=== PATIENT | male | born 1975 | race Caucasian/White ===

== ENCOUNTER 2016-11-04 13:13 | Outpatient (CLI) | payer MEDICAID | END 2016-11-04 13:14 | disposition home or self-care (01) | DX: G47.30 Sleep apnea, unspecified (principal); G47.8 Other sleep disorders; G47.10 Hypersomnia, unspecified; R06.83 Snoring ==

== ENCOUNTER 2016-12-15 09:48 | Day surgery (SDC) | payer MEDICAID ==
[2016-12-15] MEDS ORDERED: LACTATED RINGERS 1,000 ML IV ONE (10:15)
[2016-12-15] MEDS ORDERED: MIDAZOLAM 2 MG/2 ML VIAL IVP ONE (11:09)
[2016-12-15] MEDS ORDERED: fentaNYL 250 MCG/5 ML VIAL IVP ONE (11:09)
== END 2016-12-15 09:49 | disposition home or self-care (01) ==
PROC: 0DJD8ZZ Inspection of Lower Intestinal Tract, Via Natural or Artificial Opening Endoscopic (ICD-10-PCS; principal; 2016-12-15 11:00)
DX: R10.32 Left lower quadrant pain (principal); Z80.0 Family history of malignant neoplasm of digestive organs; K64.8 Other hemorrhoids; K57.30 Diverticulosis of large intestine without perforation or abscess without bleeding; G47.30 Sleep apnea, unspecified; F41.0 Panic disorder [episodic paroxysmal anxiety]
CPT/HCPCS: 45378; J3010; J7120

== ENCOUNTER 2017-01-12 14:22 | Outpatient (CLI) | payer MEDICAID | END 2017-01-12 14:23 | disposition home or self-care (01) | DX: G47.33 Obstructive sleep apnea (adult) (pediatric) (principal) ==

== ENCOUNTER 2017-06-01 10:46 | Outpatient (CLI) | payer MEDICAID | END 2017-06-01 10:47 | disposition home or self-care (01) | LOC: SC 10:46 | PROVIDERS: ATTEND Nurse Practitioner Family | DX: G47.33 Obstructive sleep apnea (adult) (pediatric) (principal) | CPT/HCPCS: 99212; 99214 ==

== ENCOUNTER 2023-11-16 17:04 | Emergency (ER) | payer MEDICAID ==
[2023-11-16 17:29] LABS: BASOPHILS # (AUTO) 0.1 10^3/uL (0.0-0.1); BASOPHILS % (AUTO) 0.5 %; EOSINOPHILS # (AUTO) 0.2 10^3/uL (0.0-0.7); EOSINOPHILS % (AUTO) 1.3 %; HCT - HEMATOCRIT 45.4 % (42.0-52.0); LYMPHOCYTES % (AUTO) 21.6 %; MEAN CORPUSCULAR HEMOGLOBIN 28.1 pg (27.0-31.0); MEAN CORPUSCULAR VOLUME 85.2 fL (80.0-94.0); MEAN PLATELET VOLUME 9.7 fL (7.4-11.4); MONOCYTES # (AUTO) 1.3 10^3/uL (0.0-1.0); MONOCYTES % (AUTO) 9.2 %; NEUTROPHILS # (AUTO) 9.2 10^3/uL (1.5-6.6); NEUTROPHILS % (AUTO) 67.1 %; PLT - PLATELET COUNT 199 10^3/uL (130-450); RED BLOOD COUNT 5.33 10^6/uL (4.70-6.10); RED CELL DISTRIBUTION WIDTH 12.7 % (12.0-15.0); WHITE BLOOD COUNT 13.7 x10^3/uL (4.8-10.8)
[2023-11-16 17:45] LABS: ALBUMIN/GLOBULIN RATIO 1.4 (1.0-2.2); BILIRUBIN,TOTAL 0.4 mg/dL (0.2-1.0); CALCIUM 9.5 mg/dL (8.5-10.3); POTASSIUM 4.2 mmol/L (3.5-4.5); TOTAL PROTEIN 6.8 g/dL (6.4-8.9)
[2023-11-16 17:54] LABS: BILIRUBIN,URINE NEGATIVE (NEGATIVE); GLUCOSE, URINE (UA) NEGATIVE (NEGATIVE); KETONES,URINE (UA) NEGATIVE (NEGATIVE); LEUKOCYTE ESTERASE, URINE NEGATIVE (NEGATIVE); NITRITE,URINE NEGATIVE (NEGATIVE); OCCULT BLOOD,URINE NEGATIVE (NEGATIVE); PROTEIN,URINE NEGATIVE (NEGATIVE); UROBILINOGEN,URINE 0.2 (NORMAL) E.U./dL (NORMAL)
[2023-11-16 17:55] LABS: CLARITY,URINE CLEAR (CLEAR)
[2023-11-16] MEDS ORDERED: KETOROLAC 30 MG/ML VIAL IVP STA (18:14)
[2023-11-16] MEDS ORDERED: iohexoL-300 100 ML VIAL ONE (18:19)
--- NOTE | 2023-11-16 18:23 | ED Physician Documentation ---
History of Present Illness - Stated complaint Stated Complaint: ABD PX - Chief complaint Chief Complaint: Abd Pain - History obtained from History obtained from: Patient - History of Present Illness Timing: Today Pain level max: 8 Pain level now: 8 - Additonal information Additional information: 42-year-old male presents to the emergency department with suprapubic and left lower quadrant abdominal pain that started today and has gradually worsened throughout the day. Has been constant. Has not had similar symptoms previously. No fevers. No chills. No diarrhea. No constipation. Worse with movement and palpation. Nothing makes it better. Does not take any medications at home. Review of Systems Constitutional: denies: Fever, Chills Respiratory: denies: Cough GI: denies: Vomiting, Diarrhea : denies: Dysuria, Frequency, Hesitancy Skin: denies: Rash Musculoskeletal: denies: Neck pain, Back pain Neurologic: denies: Headache PD PAST MEDICAL HISTORY - Past Medical History Past Medical History: Yes Cardiovascular: None Respiratory: Sleep apnea Endocrine/Autoimmune: None GI: Other : None HEENT: Chronic hearing loss Psych: None Musculoskeletal: None Derm: Other - Past Surgical History Past Surgical History: Yes HEENT: Myringotomy (tubes) - Present Medications Home Medications: Ambulatory Orders Medication Instructions Recorded Confirmed Amox/Clav 875/125 [Augmentin] 1 each PO Q8H #30 tablet 11/16/23 - Allergies Allergies/Adverse Reactions: Allergies Allergy/AdvReac Type Severity Reaction Status Date / Time No Known Drug Allergies Allergy Verified 11/16/23 17:08 - Social History Does the pt smoke?: No Smoking Status: Never smoker Does the pt drink ETOH?: No Does the pt have substance abuse?: No - Immunizations Immunizations are current?: Yes PD ED PE NORMAL - Vitals Vital signs reviewed: Yes - General General: Alert and oriented X 3, No acute distress - HEENT HEENT: PERRL - Neck Neck: Supple, no meningeal sign - Cardiac Cardiac: RRR, Strong equal pulses - Respiratory Respiratory: No respiratory distress, Clear bilaterally - Abdomen Abdomen: Soft, Non distended, Other (Tender to palpation left lower quadrant. No peritoneal signs. Otherwise benign abdominal exam.) - Back Back: No CVA TTP, No spinal TTP - Derm Derm: Warm and dry - Extremities Extremities: No edema, No calf tenderness / cord - Neuro Neuro: Alert and oriented X 3 - Psych Psych: Normal mood, Normal affect Results - Vitals Vitals: Vital Signs - 24 hr 11/16/23 11/16/23 17:08 19:45 Temperature 36.5 C Heart Rate 90 86 Respiratory 16 18 Rate Blood Pressure 150/90 H 159/95 H O2 Saturation 98 97 Oxygen O2 Source Room air - Labs Labs: Laboratory Tests 11/16/23 11/16/23 11/16/23 17:23 17:23 17:48 WBC 13.7 H RBC 5.33 Hgb 15.0 Hct 45.4 MCV 85.2 MCH 28.1 MCHC 33.0 RDW 12.7 Plt Count 199 MPV 9.7 Neut # (Auto) 9.2 H Lymph # (Auto) 3.0 Rhea # (Auto) 1.3 H Eos # (Auto) 0.2 Baso # (Auto) 0.1 Absolute Nucleated RBC 0.00 Nucleated RBC % 0.0 Sodium 137 Potassium 4.2 Chloride 100 L Carbon Dioxide 31 Anion Gap 6.0 BUN 14 Creatinine 1.0 Estimated GFR (MDRD) 80 L Glucose 98 Calcium 9.5 Total Bilirubin 0.4 AST 12 ALT 17 Alkaline Phosphatase 65 Total Protein 6.8 Albumin 4.0 Globulin 2.8 Albumin/Globulin Ratio 1.4 Lipase 24 Urine Color YELLOW Urine Clarity CLEAR Urine pH 6.0 Ur Specific [place] 1.020 Urine Protein NEGATIVE Urine Glucose (UA) NEGATIVE Urine Ketones NEGATIVE Urine Occult Blood NEGATIVE Urine Nitrite NEGATIVE Urine Bilirubin NEGATIVE Urine Urobilinogen 0.2 (NORMAL) Ur Leukocyte Esterase NEGATIVE Ur Microscopic Review NOT INDICATED Urine Culture Comments NOT INDICATED - Rads (name of study) CT abd/pelvis Relevant Findings:: Final report received, See rad report PD Medical Decision Making - ED course Complexity details: reviewed results, re-evaluated patient, considered differential, d/w patient, d/w family ED course: CT abdomen pelvis with uncomplicated diverticulitis. Discussed risks and benefits of antibiotics including C. difficile infection. Patient elects antibiotic therapy. Does have an elevated white blood cell count. We will place him on Augmentin. Declines pain medication for home. Was given IV Toradol here. Patient is well-appearing, nontoxic. Afebrile. No evidence of perforation or abscess. Recommend colonoscopy after diverticulitis clears. Patient counseled regarding signs and symptoms for which I believe and urgent re-evaluation would be necessary. Patient with good understanding of and agreement to plan and is comfortable going home at this time This document was made in part using voice recognition software. While efforts are made to proofread this document, sound alike and grammatical errors may occur. Departure - Departure Disposition: 01 Home, Self Care Clinical Impression: Diverticulitis Condition: Good Instructions: ED Diverticulitis Follow-Up: your,doctor in 1 week [Other] Prescriptions: Amox/Clav 875/125 [Augmentin] 1 each PO Q8H #30 tablet Comments: Your prescription was sent to [facility] in [place]. Please take all antibiotics until gone even if you are feeling better. It is recommended that you have a colonoscopy after completion of treatment. Please return if you wor sen including worsening pain, fevers or other new or worrisome symptoms. PROCEDURE: Abdomen/Pelvis W INDICATIONS: LLQ abd pain CONTRAST: 100ml omni 300 TECHNIQUE: After the administration of intravenous contrast, a CT scan of the abdomen and pelvis was performed. Images were recorded and evaluated at appropriate window settings. Reformats: coronal and sagittal. For radiation dose reduction, the following was used: automated exposure control, adjustment of mA and/or kV according to patient size. COMPARISON: None. FINDINGS: Image quality: Excellent. Lung bases and heart: Small hiatal hernia. Liver: No solid mass. Liver is mildly enlarged. There is moderate hepatic steatosis. Gallbladder and biliary tree: Normal gallbladder. No radiopaque gallstones. Spleen: No splenomegaly. Pancreas: No pancreatic ductal dilation. Adrenals: No adrenal nodule. Kidneys and ureters: No hydronephrosis. No renal cystic lesion which requires follow up. No solid mass. Bowel and peritoneum: No bowel distension. No pathologic free fluid. Sigmoid diverticulosis. There is focal thickening and omental pericolic stranding and a short segment of the sigmoid colon consistent with acute diverticulitis. There is a small amount of free fluid in the left paracolic gutter and pelvis. No organized fluid collections to suggest abscess at this time. Lymph nodes: No central or retroperitoneal adenopathy. Vessels: No infrarenal aortic aneurysm. PELVIS Reproductive organs: Unremarkable. Bladder: Mild bladder wall thickening and pericystic stranding. No calcified bladder stones underdistention. Pelvic lymph nodes: No pelvic adenopathy by size criteria. Bones: No aggressive osseous abnormality. Moderate compression fracture of T11, probably chronic. Other: No significant ventral or inguinal hernia. IMPRESSION: 1. Acute sigmoid diverticulitis. There is marked pericolonic stranding and small amount of free fluid in the left paracolic gutter. No findings to suggest diverticular perforation. No organized fluid collection to suggest diverticular abscess at this time. 2. Mild thickening of the urinary bladder wall and mild pericystic stranding, l ikely secondary to direct spread of inflammation/infection from adjacent acute diverticulitis. Please correlate with urinalysis for the possibility of cystitis. 3. Mild hepatomegaly and moderate hepatic steatosis. 4. Moderate T11 compression fracture, probably chronic. Forms: PCP List Discharge Date/Time: 11/16/23 19:45
[2023-11-16] MEDS ORDERED: iohexoL-300 100 ML VIAL IVP ONE (18:48)
[2023-11-16] MEDS ORDERED: AMOX/CLAV 875 MG/125 MG TABLET PO STA (19:00)
--- NOTE | 2023-11-16 19:22 | CT Report ---
PROCEDURE: Abdomen/Pelvis W INDICATIONS: LLQ abd pain CONTRAST: 100ml omni 300 TECHNIQUE: After the administration of intravenous contrast, a CT scan of the abdomen and pelvis was performed. Images were recorded and evaluated at appropriate window settings. Reformats: coronal and sagittal. F or radiation dose reduction, the following was used: automated exposure control, adjustment of mA and /or kV according to patient size. COMPARISON: None. FINDINGS: Image quality: Excellent. Lung bases and heart: Small hiatal hernia. Liver: No solid mass. Liver is mildly enlarged. There is moderate hepatic steatosis. Gallbladder and biliary tree: Normal gallbladder. No radiopaque gallstones. Spleen: No splenomegaly. Pancreas: No pancreatic ductal dilation. Adrenals: No adrenal nodule. Kidneys and ureters: No hydronephrosis. No renal cystic lesion which requires follow up. No solid mas s. Bowel and peritoneum: No bowel distension. No pathologic free fluid. Sigmoid diverticulosis. There is focal thickening and omental pericolic stranding and a short segment of the sigmoid colon consistent with acute diverticulitis. There is a small amount of free fluid in the left paracolic gutter and pe lvis. No organized fluid collections to suggest abscess at this time. Lymph nodes: No central or retroperitoneal adenopathy. Vessels: No infrarenal aortic aneurysm. PELVIS Reproductive organs: Unremarkable. Bladder: Mild bladder wall thickening and pericystic stranding. No calcified bladder stones underdist ention. Pelvic lymph nodes: No pelvic adenopathy by size criteria. Bones: No aggressive osseous abnormality. Moderate compression fracture of T11, probably chronic. Other: No significant ventral or inguinal hernia. IMPRESSION: 1. Acute sigmoid diverticulitis. There is marked pericolonic stranding and small amount of free fluid in the left paracolic gutter. No findings to suggest diverticular perforation. No organized fluid co llection to suggest diverticular abscess at this time. 2. Mild thickening of the urinary bladder wall and mild pericystic stranding, likely secondary to dir ect spread of inflammation/infection from adjacent acute diverticulitis. Please correlate with urinal ysis for the possibility of cystitis. 3. Mild hepatomegaly and moderate hepatic steatosis. 4. Moderate T11 compression fracture, probably chronic. Reviewed by: Devin Wilson MD on 11/16/2023 7:20 PM PST Approved by: Devin Wilson MD on 11/16/2023 7:20 PM PST Station ID: [id number]
[2023-11-16 19:52] VITALS: BP 159/95; O2SAT 97
== END 2023-11-16 19:45 | disposition home or self-care (01) ==
LOC: ED 17:04
DX: K57.32 Diverticulitis of large intestine without perforation or abscess without bleeding (principal)
CPT/HCPCS: 36415; 74177; 80053; 81003; 83690; 85025; 99283; 99284; A9270; Q9967; 81001; 87086